=== PATIENT | male | born 1970 | race Caucasian/White ===

== ENCOUNTER → 2016-08-05 | Day surgery (SDC) | payer BC ==
[~2016-08-05] VITALS: Ht 180.3 cm; Wt 81.2 kg
[~2016-08-05] MED LIST: AMBIEN10 MG PO; AMOXICILLIN500 MG PO; CELEBREX100 MG PO; DEPO TESTOS200 MG/ML IM; FLOMAX0.4 MG PO; HYDROCODON-ACE1 EAC4 PO; LIPITOR10 MG PO; NEURONTIN300 MG PO; VIIBRYD40 MG PO
--- NOTE | ~2016-08-05 | OR ---
PATIENT'S NAME: NELL BOJORQUEZ [facility] AGE: 46 Y [address] ROOM: [place] [address] LOCATION: [facility] [place] ADMIT DATE: 08/05/2016 OR/Procedure Report DISCHARGE DATE: FAMILY PHYSICIAN: Eliseo Santiago MD ATTENDING PHYSICIAN: Jhon Lin SURGEON: Jhon Lin MD MARKETER: DATE OF PROCEDURE: 08/05/2016 PREOPERATIVE DIAGNOSES: 1. An 8 mm right proximal ureteral calculus. 2. Gross hematuria. POSTOPERATIVE DIAGNOSES: 1. An 8 mm right proximal ureteral calculus. 2. Gross hematuria. PROCEDURES PERFORMED: 1. Cystoscopy with right stone manipulation. 2. Right ureteral stent placement. 3. Right extracorporeal shock wave lithotripsy. ANESTHESIA: Sedation. INDICATION: This is a 46-year-old gentleman who had presented to the emergency department over the weekend with abdominal pain and hematuria, and he was found to have an 8 mm stone. He does have a smoking history. The large stone is the presumed source of the blood in his urine, but we will evaluate his bladder. We will avoid contrast so as to not obscure the stone for the planned ESWL. PROCEDURE IN DETAIL: Having obtained his informed consent, the patient was taken to the operating room. He was prepped and draped sterilely and in lithotomy position. IV sedation was administered. A 21-St Lucian cystoscope was assembled and guided into the urethra. The course of the urethra was unremarkable. The bladder itself demonstrated some old blood at the base. It appeared to be emanating from his right orifice, consistent with a stone. The bladder was otherwise unremarkable on careful examination using the 70-degree lens. I found no mucosal lesions. Under fluoroscopy, we could see the stone as I had appreciated it on his CT scan. I placed him in a Trendelenburg position and passed an open-ended catheter to the level of the stone. Using saline irrigation, we washed it into the renal pelvis. PATIENT'S NAME: NELL BOJORQUEZ [facility] AGE: 46 Y [address] ROOM: [place] [address] LOCATION: [facility] [place] ADMIT DATE: 08/05/2016 OR/Procedure Report DISCHARGE DATE: FAMILY PHYSICIAN: Eliseo Santiago MD ATTENDING PHYSICIAN: Jhon Lin With the stone out of the proximal ureter, I passed a guidewire. Over that, we passed a 4.8 Multi-Link stent. We had a nice level of placement cystoscopically and fluoroscopically. The patient was now moved to the lithotripsy suite. The stone was brought into the second focal point, ellipsoid, and fragmentation was begun. We started at 14 kV and worked up to a maximum of 24 kV. A total of 3000 impulses were administered. The stone appeared to fragment nicely. The patient tolerated all this well. Blood loss was negligible. No specimens were sent. The patient returned to the recovery area, awake and in stable condition. JHON LIN MD SF[facility]/modl /[id number] CC: Eliseo Santiago MD d: 08/05/16 1637 t: 08/12/16 1111, OPERATIVE SUMMARY
== END | disposition disaster alternative care site (69) ==
LOC: GPOC 08-04 14:00 → GSDC 10:05 → GPOC 14:00
PROC: 0T768DZ Dilation of Right Ureter with Intraluminal Device, Via Natural or Artificial Opening Endoscopic (ICD-10-PCS; principal; 2016-08-05)
PROC: 0TN68ZZ Release Right Ureter, Via Natural or Artificial Opening Endoscopic (ICD-10-PCS; 2016-08-05)
PROC: 0TF6XZZ Fragmentation in Right Ureter, External Approach (ICD-10-PCS; 2016-08-05)
DX: N20.1 Calculus of ureter (principal); R31.0 Gross hematuria; K21.9 Gastro-esophageal reflux disease without esophagitis; F17.210 Nicotine dependence, cigarettes, uncomplicated
CPT/HCPCS: C1769; C2617; J1956; J3010; J7030

== ENCOUNTER → 2016-08-25 | Outpatient (CLI) | payer BC | END | disposition disaster alternative care site (69) | LOC: GRAD 10:00 | DX: N20.0 Calculus of kidney (principal); Z96.0 Presence of urogenital implants ==